=== PATIENT | female | born 1950 | race Caucasian/White ===

== ENCOUNTER 2022-04-14 15:42 | Emergency (ER) | payer BC ==
[2022-04-14 16:01] VITALS: BP 121/52; PULSE 90; RESP 19; TEMP 98.2; BMI 43.2
== END 2022-04-14 17:13 | disposition left against medical advice (07) ==
LOC: JER 15:42
DX: F41.9 Anxiety disorder, unspecified (principal); R11.0 Nausea
CPT/HCPCS: 99281-25